=== PATIENT | male | born 1980 | race Caucasian/White ===

== ENCOUNTER 2020-10-28 12:30 | Outpatient (REF) | payer MEDICAID, SELFPAY ==
--- NOTE | ~2020-10-28 | XR_ITS ---
EXAMINATION: XR CERVICAL SPINE XR RIGHT SHOULDER CLINICAL INFORMATION: Cervalgia with history of healed physical injury, trauma and pain right shoulder. COMPARISON: None. TECHNIQUE: 4 views cervical spine, 3 view shoulder. FINDINGS: C-Spine: Cervical spine appears normal aside from some minimal disc space narrowing at C5-C6. Disc spaces are otherwise well preserved. No soft tissue swelling or abnormal calcifications are seen. Foramina are widely patent. Shoulder: No bone, joint or soft tissue abnormality is seen. XR/XR shoulder RT min 2V IMPRESSION: Minimal narrowing at C5-C6. Normal-appearing shoulder. Foramina are widely patent.
--- NOTE | ~2020-10-28 | XR_ITS ---
EXAMINATION: XR CERVICAL SPINE XR RIGHT SHOULDER CLINICAL INFORMATION: Cervalgia with history of healed physical injury, trauma and pain right shoulder. COMPARISON: None. TECHNIQUE: 4 views cervical spine, 3 view shoulder. FINDINGS: C-Spine: Cervical spine appears normal aside from some minimal disc space narrowing at C5-C6. Disc spaces are otherwise well preserved. No soft tissue swelling or abnormal calcifications are seen. Foramina are widely patent. Shoulder: No bone, joint or soft tissue abnormality is seen. XR/XR cervical spine min 6V IMPRESSION: Minimal narrowing at C5-C6. Normal-appearing shoulder. Foramina are widely patent.
== END 2020-10-28 12:31 | disposition home or self-care (01) ==
LOC: HO.XRAY 12:30
PROVIDERS: PCP Registered Nurse Community Health; Visit Provider Emergency Medicine
DX: M25.511 Pain in right shoulder (principal); M54.2 Cervicalgia; Z87.828 Personal history of other (healed) physical injury and trauma
CPT/HCPCS: 72052; 73030